=== PATIENT | female | born 1935 | race Caucasian/White ===

== ENCOUNTER 2024-10-25 14:01 | Inpatient (IN) ==
--- NOTE | 2024-10-25 14:18 | Emergency Department Note ---
HPI - SOB/Dyspnea General Chief Complaint: SOB -Shortness of Breath Stated Complaint: pneumonia Time Seen by Provider: 10/25/24 14:04 Source: EMS Mode of arrival: ambulance History of Present Illness HPI Narrative: 89 Y/O Female who presents to the ER at the request of Dr. Naranjo, from the onsite half-way, comes via EMS with SOB for the last 5 days requiring 2 Liters of oxygen to help bring 02 sats to 93%. MD elicited complaint: Reports shortness of breath Pertinent past history: Reports congestive heart failure Related Data Home Medications Medication Instructions Recorded Confirmed acetaminophen 325 mg capsule 650 mg PO Q4H PRN headache 06/23/24 10/25/24 aluminum-mag hydroxide-simethicone 30 ml PO Q6H PRN indigestion 06/23/24 10/25/24 400 mg-400 mg-40 mg/5 mL oral susp (Maalox Maximum Strength) apixaban 5 mg tablet (Eliquis) 5 mg PO Q12H 06/23/24 10/25/24 docusate sodium 100 mg capsule 200 mg PO BID 06/23/24 10/25/24 ferrous sulfate 325 mg (65 mg 325 mg PO BID 06/23/24 10/25/24 iron) tablet hydrochlorothiazide 12.5 mg capsule 12.5 mg PO DAILY 06/23/24 10/25/24 levothyroxine 25 mcg tablet 25 mcg PO QDAC 06/23/24 10/25/24 loratadine 10 mg tablet 10 mg PO DAILY 06/23/24 10/25/24 losartan 50 mg tablet 50 mg PO DAILY 06/23/24 10/25/24 megestrol 40 mg tablet 40 mg PO BID 06/23/24 10/25/24 metoprolol tartrate 25 mg tablet 12.5 mg PO Q12H 06/23/24 10/25/24 multivitamin (Daily Multi-Vitamin 1 tab PO DAILY 06/23/24 10/25/24 tablet) pantoprazole 40 mg tablet,delayed 40 mg PO Q12H 06/23/24 10/25/24 release simvastatin 20 mg tablet 20 mg PO BEDTIME 06/23/24 10/25/24 tramadol 50 mg tablet 50 mg PO Q8H PRN pain 06/23/24 10/25/24 Allergies Allergy/AdvReac Type Severity Reaction Status Date / Time Sulfa (Sulfonamide Allergy Verified 10/25/24 14:41 Antibiotics) Review of Systems Status of ROS 10 or more systems reviewed and unremark able except as noted in history and below Constitutional Denies: fever, chills or change in weight Eyes Denies: change in vision, blurry vision or blind spots Ears, nose, mouth, and throat Denies: neck pain Cardiovascular Denies: chest pain, palpitations, edema or swelling of feet/ankles Respiratory Reports: shortness of breath, cough and chest congestion; Denies: wheezing, stridor, pain on inspiration, change in phlegm color or coughing up blood Gastrointestinal Reports: nausea; Denies: abdominal pain, vomiting or change in bowel habits Genitourinary Denies: painful urination, urinary frequency or urinary urgency Musculoskeletal Denies: back pain Integumentary/Breast Denies: rash Neurological Denies: headache Psychiatric Denies: anxiety PFSH PFS Medical History (Updated 10/25/24 @ 15:19 by Dangelo Juarez RN) Right cataract Left cataract Normal colonoscopy Back pain Depression Breast cancer, right Anxiety Neuropathy Insomnia Irritable bowel syndrome (IBS) Fibromyalgia GERD (gastroesophageal reflux disease) Hypertension Hyperlipidemia Diabetes mellitus Vitamin D deficiency Hypothyroid Neoplasm of breast Dementia UTI (urinary tract infection) Acute kidney failure Encephalopathy Dysphagia Pneumonia Heart failure Pulmonary embolism NSTEMI (non-ST elevated myocardial infarction) Anemia Alzheimer dementia Surgical History (Updated 10/25/24 @ 15:19 by Dangelo Juarez RN) H/O right mastectomy Hx of esophagogastroduodenoscopy Hx of cardiac cath Hx of cholecystectomy H/O: hysterectomy Social History Smoking status: never smoker Within the past year, how often did you have a drink containing alcohol: never Score interpretation: A score less than 3 is consistent with normal alcohol consumption. What is your current living situation: I presently have a place to live Problems where you live: no known problems Highest level of school completed/degree received: high school Feel stressed/tense/nervous/anxious/difficulty sleeping: not at all Gender Identity: female Exam Exam: ill appearing, elderly, non toxic appearing obese female Constitutional: normal general appearance and alert Vital Signs - 24 hr 10/25/24 14:01 10/25/24 15:00 10/25/24 15:25 Temperature 98.1 F Pulse Rate 114 H 130 H Respiratory Rate 22 22 Blood Pressure 203/87 198/94 Pulse Oximetry 89 L 95 95 Oxygen Delivery Me thod Room Air Nasal Cannula Oxygen Flow Rate 2 10/25/24 15:30 Temperature Pulse Rate 134 H Respiratory Rate Blood Pressure 195/92 Pulse Oximetry 95 Oxygen Delivery Me thod Nasal Cannula Oxygen Flow Rate 2 HENMT: normocephalic Eyes: PERRL and EOMs intact bilaterally Respiratory: Lungs, coarse throughout with mild rales noted bilateral bases strong non productive cough noted Cardiovascular: normal heart rate noted and peripheral pulses 2+ throughout Gastrointestinal: abdomen normal to inspection, abdomen soft to palpation and normoactive bowel sounds Neurology: speech normal Psychiatry: oriented x3, cooperative and affect normal Skin: skin color normal Course Reevaluation(s) Reevaluation #1: Patient is stable. I spoke with the son at bedside. Patient's chest x-ray and CT chest is negative for PNA will treat for Bronchitis. WBC > 19,000. COVID/RSV and FLU all swabs are negative. One liter NS given 10 mg Hydralazine IVP given for HTN 4 mg Zofran given IVP Albuterol neb treatment patient is not wheezing, will hold on steroids at this time Azithromycin 500 mg piggyback ordered Time: 15:40 Reevaluation #2: [facility] office #[phone] called left message Called [facility]'s cell phone for admission - OK to admit Time: 15:55 Vital Signs Vital signs: Vital Signs Temperature 98.1 F 10/25/24 14:01 Pulse Rate 114 H 10/25/24 14:01 Respiratory Rate 22 10/25/24 14:01 Blood Pressure 203/87 10/25/24 14:01 Pulse Oximetry 89 L 10/25/24 14:01 Oxygen Delivery Method Room Air 10/25/24 14:01 Temperature 98.1 F 10/25/24 14:01 Pulse Rate 134 H 10/25/24 15:30 Respiratory Rate 22 10/25/24 15:00 Blood Pressure 195/92 10/25/24 15:30 Pulse Oximetry 95 10/25/24 15:30 Oxygen Delivery Method Nasal Cannula 10/25/24 15:30 Oxygen Flow Rate 2 10/25/24 15:30 MDM - SOB/Dyspnea Lab Data Attestation: I reviewed the patient's lab results. Labs: Lab Results 10/25/24 10/25/24 Range/Units 14:14 14:30 WBC 19.0 H (4.3-9.3) K/uL RBC 4.3 (4.00-5.50) M/uL Hgb 13.9 (12.5-15.8) gm/dL Hct 41.6 (35.9-46.7) % MCV 97.4 H (81.0-93.7) fl MCH 32.5 H (27.6-32.2) pg MCHC 33.4 (33.1-35.3) g/dl RDW 13.1 (11.4-14.2) % Plt Count 425 H (152-353) K/uL MPV 7.5 (6.9-10.8) fl Gran % 88.9 H (47.8-71.3) % Lymph % (Auto) 5.7 L (20.0-43.0) % [place] % (Auto) 4.6 (3.6-9.8) % Eos % (Auto) 0.6 (0.4-2.8) % Baso % (Auto) 0.2 (0.1-0.85) Lymph # (Auto) 1.1 (1.1-3.1) [place] # (Auto) 0.9 L (1.1-3.1) Eos # (Auto) 0.1 (0.0-0.2) Baso # (Auto) 0.0 (0.0-0.1) Absolute Gran (auto) 16.9 H (2.3-6.0) Sodium 137 (136-145) mmol/L Potassium 4.0 (3.6-5.2) mmol/L Chloride 101.0 (98-107) mmol/L Carbon Dioxide 27 (21-32) mmol/L Anion Gap 9.0 (4-14) mEq/L BUN 22 H (7-18) mg/dL Creatinine 1.4 H (0.6-1.3) mg/dL Estimated GFR 36.0 (>59.9) Glucose 158 H (70-110) mg/dL Calcium 9.4 (8.5-10.1) mg/dL B-Natriuretic Peptide 64.4 (0-100) pg/mL COVID-19 (IDA) Not detected (Not Detectd) Influenza Type A Ag Negative (Negative) Influenza Type B Ag Negative (Negative) Respiratory Virus Ag Negative (Negative) Imaging Data Imaging ordered: Chest x-ray Attestation: I have reviewed the pertinent imaging results. Radiologist's impression: EXAM: AP chest HISTORY: Cough SOB COMPARISON: 06/26/2024 FINDINGS: Heart size normal and unchanged with no definite infiltrate/pneumonia, CHF or pleural fluid. Persistent diaphragm elevation resulting in low lung volumes. IMPRESSION: No change, no acute findings. THIS IS AN ELECTRONICALLY VERIFIED FINAL REPORT 10/25/2024 2:37 PM - Electronically signed by Kel Shearer MD EXAMINATION: CT CHEST WO CON HISTORY: COUGH; SHORTNESS OF BREATH; CV COMPARISON: CT chest 11/20/2021 TECHNIQUE: Contiguous noncontrast axial CT images of the thorax. Images reviewed in the axial imaging plane with reformatted sagittal and coronal images.The above CT scan was done with automated exposure control and the mA and kV was adjusted to obtain quality images according to patient size. FINDINGS: The lungs are expanded. Moderate elevation of the right hemidiaphragm of the chest. Chronic coarse opacities in the pulmonary apices most consistent with parenchymal scar. Chronic opacity superior segment of the right lower lobe consistent with scar. No focal areas of pulmonary consolidation, or pleural fluid collections. Minimal to mild central bronchiectasis lower lung rogers. Central airways are patent. Details of the mediastinum/vascular structures are limited since intravenous contrast was not used. Heart size within normal range. Thoracic aorta tapers normally. Arterial vascular calcifications aorta and branch vessels. The main pulmonary outflow trunk is normal caliber. No pericardial effusion. Mild thoracic spondylosis. IMPRESSION: Moderate elevation of the right hemidiaphragm of the chest. Chronic coarse opacities in the pulmonary apices, superior segment right lower lobe most consistent with parenchymal scar. THIS IS AN ELECTRONICALLY VERIFIED FINAL REPORT 10/25/2024 3:21 PM - Electronically signed by Lorna Perez MD Discharge Plan Discharge Patient Disposition: Admitted As Inpatient Condition: Stable Clinical Impression: Bronchitis Time of Disposition: 15:35
[2024-10-25 14:37] LABS: Basophils%(Percent) Auto 0.2 (0.1-0.85); Eosinophils#(Absolute)Auto 0.1 (0.0-0.2); Eosinophils%(Percent) Auto 0.6 % (0.4-2.8); Granulocytes % - Auto 88.9 % (47.8-71.3); Granulocytes#(Absolute)- Auto 16.9 (2.3-6.0); Hematocrit 41.6 % (35.9-46.7); Mean Corpuscular Volume 97.4 fl (81.0-93.7); Monocytes #(Absolute)- Auto 0.9 (1.1-3.1); Monocytes %(Percent)- Auto 4.6 % (3.6-9.8); Platelet Count 425 K/uL (152-353)
[2024-10-25] MEDS: HYDRALAZINE HCL 20 MG/ML VIAL IVP ONE (14:53)
[2024-10-25] MEDS: ONDANSETRON HCL/PF 4 MG/2 ML VIAL IVP ONE (14:55)
[2024-10-25] MEDS ORDERED: ALBUTEROL SULFATE 2.5 MG/3 ML VIAL.NEB INH ONE (14:56)
[2024-10-25] MEDS: ALBUTEROL SULFATE 2.5 MG/3 ML VIAL.NEB INH ONE (15:25)
[2024-10-25] MEDS ORDERED: ACETAMINOPHEN 325 MG TABLET PO PRN (15:38)
[2024-10-25] MEDS ORDERED: MAGNESIUM, ALUMINUM HYDROXIDE 30 ML ORAL.SUSP PO PRN (15:54)
[2024-10-25] MEDS ORDERED: 0.9 % SODIUM CHLORIDE 1000 ML 1,000 ML IV ONE (16:08)
[2024-10-25] MEDS ORDERED: 0.9 % SODIUM CHLORIDE 250 ML IV ONE (16:08)
[2024-10-25] MEDS ORDERED: AZITHROMYCIN 500 MG VIAL ONE (16:09)
[2024-10-25] MEDS: AZITHROMYCIN 500 MG 500 MG in 0.9 % SODIUM CHLORIDE 250 ML IV ONE (16:15)
[2024-10-25] MEDS: 0.9 % SODIUM CHLORIDE 1000 ML 1,000 ML IV ONE (16:15)
[2024-10-25] MEDS: METOPROLOL TARTRATE 25 MG TABLET PO SCH (20:12)
[2024-10-25] MEDS: SIMVASTATIN 10 MG TABLET PO SCH (20:12)
[2024-10-25] MEDS: PANTOPRAZOLE SODIUM 40 MG TABLET.DR PO SCH (20:12)
[2024-10-25] MEDS: APIXABAN 2.5 MG TABLET PO SCH (20:12)
[2024-10-25] MEDS: MEGESTROL ACETATE 40 MG TABLET PO SCH (20:12)
[2024-10-25] MEDS: FERROUS SULFATE 325 MG TABLET PO SCH (20:12)
[2024-10-25] MEDS: DOCUSATE SODIUM 100 MG CAPSULE PO SCH (20:12)
[2024-10-25] MEDS: BENZONATATE 100 MG CAPSULE PO PRN (20:22)
[2024-10-25] MEDS: IPRATROPIUM/ALBUTEROL SULFATE 3 ML AMPUL.NEB INH SCH (20:47)
[2024-10-25] MEDS: ACETYLCYSTEINE 200 MG/ML INH ONE (21:00)
[2024-10-25] MEDS: BUDESONIDE 0.5 MG/2 ML AMPUL.NEB INH ONE (21:00)
[2024-10-25] MEDS: CEFTRIAXONE SODIUM 1 GM in 0.9 % SODIUM CHLORIDE MB+ 50 ML IV SCH (21:38)
[2024-10-25] MEDS: BUMETANIDE 1 MG/4 ML VIAL IVP ONE (21:38)
[2024-10-25] MEDS: LORazepam 2 MG/ML VIAL IVP PRN (21:38)
[2024-10-25] MEDS: METHYLPREDNISOLONE SOD SUCC/PF 125 MG/2 ML VIAL IVP ONE (21:38)
[2024-10-26 05:14] LABS: Basophils #(Absolute) Auto 0.1 (0.0-0.1); Basophils%(Percent) Auto 0.4 (0.1-0.85); Granulocytes % - Auto 96.8 % (47.8-71.3); Granulocytes#(Absolute)- Auto 21.9 (2.3-6.0); Hematocrit 39.5 % (35.9-46.7); Mean Corpuscular Volume 96.7 fl (81.0-93.7); Monocytes #(Absolute)- Auto 0.4 (1.1-3.1); Monocytes %(Percent)- Auto 1.7 % (3.6-9.8); Platelet Count 339 K/uL (152-353)
[2024-10-26 05:16] LABS: Potassium 4.3 mmol/L (3.6-5.2); White Blood Count 22.6 K/uL (4.3-9.3)
[2024-10-26] MEDS: LEVOTHYROXINE SODIUM 50 MCG TABLET PO SCH (08:25)
[2024-10-26 08:40] LABS: PCO2 ABG 42 mmHg (35-45); PO2 ABG 78 mmHg (60-100); pH ABG 7.33 (7.35-7.45)
[2024-10-26 08:41] LABS: Base Excess ABG -3.7 mmo1/L (-2-2); Oxygen Saturation ABG 94 % (92-100)
[2024-10-26] MEDS ORDERED: ENOXAPARIN SODIUM 40 MG/0.4 ML SYRINGE SUBQ SCH (09:00)
[2024-10-26] MEDS: BUDESONIDE 0.5 MG/2 ML AMPUL.NEB INH ONE (09:19)
[2024-10-26] MEDS: ALBUMIN HUMAN 25% 100 ML IV SCH (09:23)
[2024-10-26] MEDS: 0.9 % SODIUM CHLORIDE 1000 ML 1,000 ML IV SCH (09:23)
[2024-10-26] MEDS: METHYLPREDNISOLONE SOD SUCC/PF 40 MG/ML VIAL INJ SCH (09:24)
[2024-10-26] MEDS: AZITHROMYCIN IV SCH (09:24)
[2024-10-26] MEDS: LOSARTAN POTASSIUM 50 MG TABLET PO SCH (09:24)
[2024-10-26] MEDS: SODIUM CHLORIDE 0.9% IV SCH (09:24)
[2024-10-26] MEDS: LORATADINE 10 MG TABLET PO SCH (09:24)
[2024-10-26] MEDS: MULTIVITAMIN TABLET PO SCH (09:25)
[2024-10-26] MEDS: VANCOMYCIN HCL 1 MG in 0.9 % SODIUM CHLORIDE 250 ML IV SCH (09:58)
[2024-10-26] MEDS: hydroCHLOROthiazide 25 MG TABLET PO SCH (09:58)
[2024-10-26] MEDS: VANCOMYCIN/WATER 750 MG 750 MG/150 ML PIGGYBACK IV SCH (10:34)
[2024-10-26 10:36] LABS: Specific Gravity Urine 1.025 (1.001-1.035); Urine Appearance CLEAR (CLEAR); Urine Blood NEGATIVE (NEG - TRACE); Urine Color YELLOW (STRAW/YELL.); Urine Urobilinogen Normal (NORMAL)
[2024-10-26] MEDS: HYDROCODONE/CHLORPHEN P-STIREX 5 ML SUS.ER.12H PO PRN (11:19)
[2024-10-26] MEDS: VANCOMYCIN HCL 500 MG 500 MG in 0.9 % SODIUM CHLORIDE MB+ 100 ML IV SCH (11:20)
--- NOTE | 2024-10-26 14:15 | History & Physical Report ---
H&P: HPI History of Present Illness Chief complaint: Bronchitits Narrative: 89 Y/O Female who presented to the ER at the request of Dr. Naranjo, from the onsite [facility], comes via EMS with SOB for the last 5 days requiring 2 Liters of oxygen to help bring 02 sats to 93%. Admitted patient to med/surg for treatment. Day one of hospital stay, patient lab work reveals she is septic with end organ, clinical pneumonia, acute renal injury, hypoxia, dehydration, and hypoabluminemia. Electrolyte resuscitation has been initiated. EKG was performed and reflects Sinus Tachycardia with a Rate of 120 and IL of 134. WBC is elevated at 22.6 from 19.0 yesterday. Patient's D-Dimer was elevated at 1460 this and Lactic Acid of 4.3. Chest X-Ray finding of "Persistent diaphragm elevation resulting in low lung volumes." Chest CT Impression: " Moderate elevation of the right hemidiaphragm of the chest. Chronic coarse opacities in the pulmonary apices, superior segment right lower lobe most consistent with parenchymal scar." Review of Systems Status of ROS 10 or more systems reviewed and unremark able except as noted in history and below Constitutional Denies: fever, chills or change in weight Eyes Denies: change in vision, blurry vision or blind spots Ears, nose, mouth, and throat Denies: neck pain Cardiovascular Reports: shortness of breath with exertion; Denies: chest pain, palpitations, edema or swelling of feet/ankles Respiratory Reports: shortness of breath, cough and chest congestion; Denies: wheezing, stridor, pain on inspiration, change in phlegm color or coughing up blood Gastrointestinal Reports: nausea; Denies: abdominal pain, vomiting or change in bowel habits Genitourinary Denies: painful urination, urinary frequency or urinary urgency Musculoskeletal Denies: back pain or neck pain Integumentary/Breast Denies: rash Neurological Denies: headache Psychiatric Denies: anxiety Allergic/Immunologic Denies: wheezing PFSH PFS Medical History Right cataract Left cataract Normal colonoscopy Back pain Depression Breast cancer, right Anxiety Neuropathy Insomnia Irritable bowel syndrome (IBS) Fibromyalgia GERD (gastroesophageal reflux disease) Hypertension Hyperlipidemia Diabetes mellitus Vitamin D deficiency Hypothyroid Neoplasm of breast Dementia UTI (urinary tract infection) Acute kidney failure Encephalopathy Dysphagia Pneumonia Heart failure Pulmonary embolism NSTEMI (non-ST elevated myocardial infarction) Anemia Alzheimer dementia Surgical History H/O right mastectomy Hx of esophagogastroduodenoscopy Hx of cardiac cath Hx of cholecystectomy H/O: hysterectomy Social History Smoking status: never smoker Within the past year, how often did you have a drink containing alcohol: never Score interpretation: A score less than 3 is consistent with normal alcohol consumption. What is your current living situation: I presently have a place to live Problems where you live: no known problems Highest level of school completed/degree received: high school Feel stressed/tense/nervous/anxious/difficulty sleeping: not at all Gender Identity: female Meds Home Medications and Allergies Home Medications Medication Instructions Recorded Confirmed Type acetaminophen 325 mg capsule 650 mg PO Q4H PRN headache 06/23/24 10/25/24 History aluminum-mag hydroxide-simethicone 30 ml PO Q6H PRN indigestion 06/23/24 10/25/24 History 400 mg-400 mg-40 mg/5 mL oral susp (Maalox Maximum Strength) apixaban 5 mg tablet (Eliquis) 5 mg PO Q12H 06/23/24 10/25/24 History docusate sodium 100 mg capsule 200 mg PO BID 06/23/24 10/25/24 History ferrous sulfate 325 mg (65 mg 325 mg PO BID 06/23/24 10/25/24 History iron) tablet hydrochlorothiazide 12.5 mg capsule 12.5 mg PO DAILY 06/23/24 10/25/24 History loratadine 10 mg tablet 10 mg PO DAILY 06/23/24 10/25/24 History losartan 50 mg tablet 50 mg PO DAILY 06/23/24 10/25/24 History megestrol 40 mg tablet 40 mg PO BID 06/23/24 10/25/24 History metoprolol tartrate 25 mg tablet 12.5 mg PO Q12H 06/23/24 10/25/24 History multivitamin (Daily Multi-Vitamin 1 tab PO DAILY 06/23/24 10/25/24 History tablet) pantoprazole 40 mg tablet,delayed 40 mg PO Q12H 06/23/24 10/25/24 History release simvastatin 20 mg tablet 20 mg PO BEDTIME 06/23/24 10/25/24 History tramadol 50 mg tablet 50 mg PO Q8H PRN pain 06/23/24 10/25/24 History levothyroxine 50 mcg tablet 50 mcg PO QDAC 10/26/24 10/26/24 History Allergies Allergy/AdvReac Type Severity Reaction Status Date / Time Sulfa (Sulfonamide Allergy Verified 10/25/24 14:41 Antibiotics) Exam Exam: Patient appeared disheveled and feeling unwell upon exam. Constitutional: abnormal general appearance (disheveled), (chronically ill) and (lethargic), distress noted (mild), abnormal body habitus (overweight) and alert Vital Signs - 24 hr 10/25/24 14:01 10/25/24 15:00 10/25/24 15:23 Temperature 98.1 F Pulse Rate 114 H 130 H Pulse Rate [Bilate ral] Respiratory Rate 22 22 Blood Pressure 203/87 198/94 155/69 Blood Pressure [Ri t Radial Artery] Pulse Oximetry 89 L 95 Oxygen Delivery Me thod Room Air Nasal Cannula Oxygen Flow Rate 2 Fraction of Inspir ed Oxygen 10/25/24 15:25 10/25/24 15:30 10/25/24 15:45 Temperature Pulse Rate 134 H Pulse Rate [Bilate ral] Respiratory Rate Blood Pressure 195/92 195/92 Blood Pressure [Ri ght Radial Artery] Pulse Oximetry 95 95 Oxygen Delivery Me thod Nasal Cannula Oxygen Flow Rate 2 Fraction of Inspir ed Oxygen 10/25/24 16:00 10/25/24 16:15 10/25/24 16:34 Temperature Pulse Rate Pulse Rate [Bilate ral] Respiratory Rate Blood Pressure 204/92 155/69 159/75 Blood Pressure [Ri t Radial Artery] Pulse Oximetry Oxygen Delivery Me thod Oxygen Flow Rate Fraction of Inspir ed Oxygen 10/25/24 16:58 10/25/24 17:14 10/25/24 17:26 Temperature Pulse Rate Pulse Rate [Bilate ral] Respiratory Rate 24 24 Blood Pressure 159/75 Blood Pressure [Ri t Radial Artery] Pulse Oximetry 94 L 94 L Oxygen Delivery Me thod Nasal Cannula Nasal Cannula Oxygen Flow Rate 2 2 Fraction of Inspir ed Oxygen 10/25/24 19:27 10/25/24 20:49 10/25/24 20:49 Temperature 98.5 F Pulse Rate Pulse Rate [Bilate ral] 130 H Respiratory Rate 19 Blood Pressure Blood Pressure [Ri ght Radial Artery] 173/74 Pulse Oximetry 94 L 93 L 93 L Oxygen Delivery Me thod Nasal Cannula Nasal Cannula Oxygen Flow Rate 3 Fraction of Inspir ed Oxygen 10/25/24 21:38 10/25/24 23:57 10/26/24 00:21 Temperature 98.4 F Pulse Rate Pulse Rate [Bilate ral] 121 H Respiratory Rate 32 H Blood Pressure 168/70 160/80 Blood Pressure [Ri ght Radial Artery] 166/80 Pulse Oximetry 97 Oxygen Delivery Me thod Nasal Cannula Oxygen Flow Rate Fraction of Inspir ed Oxygen 10/26/24 01:47 10/26/24 03:48 10/26/24 05:24 Temperature 98.5 F Pulse Rate Pulse Rate [Bilate ral] 117 H Respiratory Rate 24 22 Blood Pressure Blood Pressure [Ri ght Radial Artery] 168/82 Pulse Oximetry 86 L 97 Oxygen Delivery Me thod Venturi Mask Venturi Mask Oxygen Flow Rate Fraction of Inspir ed Oxygen 10/26/24 07:24 10/26/24 07:24 10/26/24 08:00 Temperature 98.9 F Pulse Rate Pulse Rate [Bilate ral] 117 H Respiratory Rate 20 Blood Pressure Blood Pressure [Ri ght Radial Artery] 140/62 Pulse Oximetry 94 L 94 L 94 L Oxygen Delivery Me thod Venturi Mask Room Air Oxygen Flow Rate Fraction of Inspir ed Oxygen 35 10/26/24 09:24 10/26/24 09:25 10/26/24 12:00 Temperature 98.9 F Pulse Rate 117 H Pulse Rate [Bilate ral] 108 H Respiratory Rate 20 Blood Pressure 140/62 140/62 Blood Pressure [Ri ght Radial Artery] 145/68 Pulse Oximetry 98 Oxygen Delivery Me thod Nasal Cannula Oxygen Flow Rate 2 Fraction of Inspir ed Oxygen 10/26/24 13:02 Temperature Pulse Rate Pulse Rate [Bilate ral] Respiratory Rate Blood Pressure Blood Pressure [Ri ght Radial Artery] Pulse Oximetry 99 Oxygen Delivery Me thod Oxygen Flow Rate Fraction of Inspir ed Oxygen HENMT: normocephalic, external ears normal and external nose normal Eyes: PERRL, EOMs intact bilaterally, conjunctivae normal, alignment normal and periorbital findings normal Neck/C-Spine: trachea midline Lymph: no lymphadenopathy noted and no lymphedema noted Chest: inspection of chest normal and palpation of chest normal Respiratory: breath sounds equal bilaterally, normal respiratory effort, auscultation abnormal (bronchial breath sounds) and rales noted (base) Lungs, coarse throughout with mild rales noted bilateral bases strong non productive cough noted Cardiovascular: normal heart rate noted and peripheral pulses 2+ throughout Gastrointestinal: abdomen normal to inspection, abdomen soft to palpation and normoactive bowel sounds Genitourinary: bladder normal to palpation Back/Pelvis: spine normal to inspection Extremities: normal to inspection and no deformity Neurology: no movement abnormality noted, gait abnormality noted (unable to access) and speech normal Psychiatry: oriented x3, cooperative and affect normal Skin: skin color normal Assessment and Plan Assessment and Plan (1) Sepsis: Qualifiers: Acute renal failure type: unspecified Sepsis acute organ dysfunction status: with acute organ dysfunction Sepsis type: sepsis due to unspecified organism Severe sepsis acute organ dysfunction type: acute renal failure Severe sepsis shock status: without septic shock Qualified Code(s): A41.9 - Sepsis, unspecified organism; R65.20 - Severe sepsis without septic shock; N17.9 - Acute kidney failure, unspecified Code(s): A41.9 - Sepsis, unspecified organism (2) Pneumonia: Qualifiers: Laterality: bilateral Lung location: lower lobe of lung Pneumonia type: due to unspecified organism Qualified Code(s): J18.9 - Pneumonia, un specified organism Code(s): J18.9 - Pneumonia, unspecified organism (3) Acute renal injury due to sepsis: Code(s): A41.9 - Sepsis, unspecified organism; R65.20 - Severe sepsis without septic shock; N17.9 - Acute kidney failure, unspecified (4) Dehydration: Code(s): E86.0 - Dehydration (5) Hypoxia: Code(s): R09.02 - Hypoxemia (6) Hypoalbuminemia: Code(s): E88.09 - Other disorders of plasma-protein metabolism, not elsewhere classified (7) Heart failure: Qualifiers: Heart failure chronicity: chronic Heart failure type: unspecified Qualified Code(s): I50.9 - Heart failure, unspecified Code(s): I50.9 - Heart failure, unspecified (8) Hypertension: Qualifiers: Hypertension type: primary hypertension Qualified Code(s): I10 - Essential (primary) hypertension Code(s): I10 - Essential (primary) hypertension (9) Diabetes mellitus: Qualifiers: Diabetes mellitus complication status: with other specified complication Diabetes mellitus mcfp insulin use: without mcfp use Diabetes mellitus type: type 2 Qualified Code(s): E11.69 - Type 2 diabetes mellitus with other specified complication Code(s): E11.9 - Type 2 diabetes mellitus without complications (10) Hypothyroid: Qualifiers: Hypothyroidism type: unspecified Qualified Code(s): E03.9 - Hypothyroidism, unspecified Code(s): E03.9 - Hypothyroidism, unspecified (11) Alzheimer dementia: Qualifiers: Alzheimer's disease onset: unspecified onset Dementia behavioral or psychological symptom: without behavioral, psychotic, or mood disturbance or anxiety Dementia severity: moderate Qualified Code(s): G30.9 - Alzheimer's disease, unspecified; F02.B0 - Dementia in other diseases classified elsewhere, moderate, without behavioral disturbance, psychotic disturbance, mood disturbance, and anxiety Code(s): G30.9 - Alzheimer's disease, unspecified; F02.80 - Dementia in other diseases classified elsewhere, unspecified severity, without behavioral disturbance, psychotic disturbance, mood disturbance, and anxiety Plan Albumin 100 mls @ 60 mls/hr IV ONCE Sodium Chloride 1,000 mls @ 125 mls/hr IV CONT Apixaban 5 mg PO Q12H Docusate Sodium 200 mg PO BID Losartan Potassium 50 mg PO DAILY Levothyroxine Sodium 25 mcg PO QDAC Multivitamins (1) each PO DAILY Ferrous Sulfate 325 mg PO BID Loratadine 10 mg PO DAILY Megastrol Acetate 40 mg PO BID Pantoprazole Sodium 40 mg PO BID Simvastatin 20 mg PO BEDTIME Albuterol Sulfate 3 ml INH Q6H Methylprednisolone Sodium Succinate 40 mg INJ Q12H Azithromycin 250 mg in Sodium Chloride 250 mls @ 250 mls/hr IV DAILY Ceftriaxone Sodium 1 gm in Sodium Chloride 50 mls @ 100 mls/hr IV Q24H Vancomycin Hcl 500 mg in Sodium Chloride 100 mls @ 200 mls/hr IV Q18H Metoprolol Tartrate 25 mg PO Q12H Acetaminophen 650 mg PO Q4H PRN Magnesium Hydroxide 30 ml PO Q6H PRN Tramadol Hcl 50 mg PO Q8H PRN Benzonatate 100 mg PO Q6H PRN Insulin Regular per sliding scale SUBQ PRN Chlorphenir/Hydrocodone Polistirex 5 ml PO Q12H PRN Continue to monitor closely. Results Labs Labs: CBC WBC 22.6 K/uL (4.3-9.3) H* 10/26/24 04:35 RBC 4.1 M/uL (4.00-5.50) 10/26/24 04:35 Hgb 13.5 gm/dL (12.5-15.8) 10/26/24 04:35 Hct 39.5 % (35.9-46.7) 10/26/24 04:35 MCV 96.7 fl (81.0-93.7) H 10/26/24 04:35 MCH 33.2 pg (27.6-32.2) H 10/26/24 04:35 MCHC 34.3 g/dl (33.1-35.3) 10/26/24 04:35 RDW 13.2 % (11.4-14.2) 10/26/24 04:35 Plt Count 339 K/uL (152-353) 10/26/24 04:35 MPV 8.8 fl (6.9-10.8) 10/26/24 04:35 Gran % 96.8 % (47.8-71.3) H 10/26/24 04:35 Lymph % (Auto) 1.1 % (20.0-43.0) L 10/26/24 04:35 [place] % (Auto) 1.7 % (3.6-9.8) L 10/26/24 04:35 Eos % (Auto) 0.0 % (0.4-2.8) L 10/26/24 04:35 Baso % (Auto) 0.4 (0.1-0.85) 10/26/24 04:35 Lymph # (Auto) 0.3 (1.1-3.1) L 10/26/24 04:35 [place] # (Auto) 0.4 (1.1-3.1) L 10/26/24 04:35 Eos # (Auto) 0.0 (0.0-0.2) 10/26/24 04:35 Baso # (Auto) 0.1 (0.0-0.1) 10/26/24 04:35 Absolute Gran (auto) 21.9 (2.3-6.0) H 10/26/24 04:35 BMP Sodium 138 mmol/L (136-145) 10/26/24 04:35 Potassium 4.3 mmol/L (3.6-5.2) 10/26/24 04:35 Chloride 100.0 mmol/L (98-107) 10/26/24 04:35 Carbon Dioxide 28 mmol/L (21-32) 10/26/24 04:35 Anion Gap 10.0 mEq/L (4-14) 10/26/24 04:35 BUN 21 mg/dL (7-18) H 10/26/24 04:35 Creatinine 1.7 mg/dL (0.6-1.3) H 10/26/24 04:35 Estimated GFR 28.5 (>59.9) 10/26/24 04:35 Glucose 210 mg/dL (70-110) H 10/26/24 04:35 Calcium 9.2 mg/dL (8.5-10.1) 10/26/24 04:35 Cardiac Enzymes Troponin I High Sens 52.80 ng/L (4.0-60.4) 10/26/24 09:45 Urine Urine Color Yellow (STRAW/YELL.) 10/26/24 10:25 Urine Appearance Clear (CLEAR) 10/26/24 10:25 Ur Specific [place] 1.025 (1.001-1.035) 10/26/24 10:25 Urine Protein Negative (NEGATIVE) 10/26/24 10:25 Urine Glucose (UA) Normal (NORMAL) 10/26/24 10:25 Urine Ketones Negative (NEGATIVE) 10/26/24 10:25 Urine Occult Blood Negative (NEG - TRACE) 10/26/24 10:25 Urine Nitrite Negative (NEGATIVE) 10/26/24 10:25 Urine Bilirubin Negative (NEGATIVE) 10/26/24 10:25 Urine Urobilinogen Normal (NORMAL) 10/26/24 10:25 Ur Leukocyte Esterase Negative (NEGATIVE) 10/26/24 10:25 ABG ABG results: 10/26/24 08:25 ABG pH 7.33 L ABG pCO2 42 ABG pO2 176 ABG HCO3 22.1 ABG Total CO2 23.4 ABG O2 Saturation 94 ABG Base Excess -3.7 L Imaging Imaging ordered: Chest x-ray and CT scan - chest Radiologist's impression: AP chest Date of Service: 10/25/24 HISTORY: Cough SOB COMPARISON: 06/26/2024 FINDINGS: Heart size normal and unchanged with no definite infiltrate/pneumonia, CHF or pleural fluid. Persistent diaphragm elevation resulting in low lung volumes. IMPRESSION: No change, no acute findings. CT CHEST WO CON Date of Service: 10/25/24 HISTORY: COUGH; SHORTNESS OF BREATH; CV COMPARISON: CT chest 11/20/2021 TECHNIQUE: Contiguous noncontrast axial CT images of the thorax. Images reviewed in the axial imaging plane with reformatted sagittal and coronal images.The above CT scan was done with automated exposure control and the mA and kV was adjusted to obtain quality images according to patient size. FINDINGS: The lungs are expanded. Moderate elevation of the right hemidiaphragm of the chest. Chronic coarse opacities in the pulmonary apices most consistent with parenchymal scar. Chronic opacity superior segment of the right lower lobe consistent with scar. No focal areas of pulmonary consolidation, or pleural fluid collections. Minimal to mild central bronchiectasis lower lung rogers. Central airways are patent. Details of the mediastinum/vascular structures are limited since intravenous contrast was not used. Heart size within normal range. Thoracic aorta tapers normally. Arterial vascular calcifications aorta and branch vessels. The main pulmonary outflow trunk is normal caliber. No pericardial effusion. Mild thoracic spondylosis. IMPRESSION: Moderate elevation of the right hemidiaphragm of the chest. Chronic coarse opacities in the pulmonary apices, superior segment right lower lobe most consistent with parenchymal scar.
[2024-10-26 14:23] LABS: Bilirubin Direct 0.1 mg/dL (0.0-0.30)
[2024-10-26] MEDS: METOPROLOL TARTRATE 25 MG TABLET PO SCH (20:06)
[2024-10-26] MEDS: TRAMADOL HCL 50 MG TABLET PO PRN (21:30)
[2024-10-27 06:57] LABS: Basophils%(Percent) Auto 0.2 (0.1-0.85); Granulocytes % - Auto 94.1 % (47.8-71.3); Granulocytes#(Absolute)- Auto 19.1 (2.3-6.0); Hematocrit 29.5 % (35.9-46.7); Mean Corpuscular Volume 97.6 fl (81.0-93.7); Monocytes #(Absolute)- Auto 0.7 (1.1-3.1); Monocytes %(Percent)- Auto 3.6 % (3.6-9.8); Platelet Count 320 K/uL (152-353)
[2024-10-27 07:00] LABS: White Blood Count 20.3 K/uL (4.3-9.3)
[2024-10-27 07:04] LABS: Potassium 4.5 mmol/L (3.6-5.2)
[2024-10-27] MEDS: LEVOTHYROXINE SODIUM 50 MCG TABLET PO SCH (08:14)
[2024-10-27] MEDS: MAGNESIUM OXIDE 400 MG TABLET PO ONE (10:14)
[2024-10-27] MEDS: IPRATROPIUM/ALBUTEROL SULFATE 3 ML AMPUL.NEB INH SCH (13:27)
--- NOTE | 2024-10-27 16:31 | Progress Note ---
Progress Note: Subjective Subjective Interval history: Day two of hospital stay, morning lab work reflects WBC level down from 22.6 to 20.3 and Lactic Acid is down to normal limits of 0.6 from 2.3. Patient O2 saturation decreased to low 80's post breathing treatment, Respiratory Therapy at bedside and applied venti mask at 40%; O2 saturation returned to normal limits. Patient is normally on O2 PRN at home and does not require it continuous. Patient was weened down to 1L O2 and switched back to NC by day shif t nurse, saturations were stable at 96-97%. Nurse attempted to ween patient off O2, after 15 minutes saturation dropped to 89% on room air; O2 was reapplied at 2L via NC resulting in patient saturation returning to 97%. Exam Exam: Patient in velarde's position upon exam. Constitutional: abnormal general appearance (disheveled), (chronically ill) and (lethargic), distress noted (mild), abnormal body habitus (overweight), limitations noted (altered mental status) and (physical limitations) and alert Vital Signs - 24 hr 10/26/24 16:00 10/26/24 16:56 10/26/24 19:18 Temperature 98.3 F 98.4 F Pulse Rate Pulse Rate [Bilate ral] 103 H 105 H Respiratory Rate 21 21 23 Blood Pressure Blood Pressure [Ri t Radial Artery] 146/67 136/63 Pulse Oximetry 98 98 98 Oxygen Delivery Me thod Nasal Cannula Nasal Cannula Nasal Cannula Oxygen Flow Rate 2 2 Fraction of Inspir ed Oxygen 10/26/24 19:26 10/26/24 19:26 10/26/24 20:06 Temperature Pulse Rate 105 H Pulse Rate [Bilate ral] Respiratory Rate Blood Pressure 136/63 Blood Pressure [Ri t Radial Artery] Pulse Oximetry 99 99 Oxygen Delivery Me thod Nasal Cannula Oxygen Flow Rate 1 Fraction of Inspir ed Oxygen 24 10/27/24 00:00 10/27/24 01:43 10/27/24 03:39 Temperature 97.8 F 97.7 F Pulse Rate Pulse Rate [Bilate ral] 97 H 95 H Respiratory Rate 24 21 Blood Pressure Blood Pressure [Ri [facility] Radial Artery] 114/65 119/65 Pulse Oximetry 98 98 95 Oxygen Delivery Me thod Nasal Cannula Nasal Cannula Oxygen Flow Rate Fraction of Inspir ed Oxygen 10/27/24 05:00 10/27/24 07:44 01/24/25 08:25 Temperature 97.8 F Pulse Rate Pulse Rate [Bilate ral] 102 H Respiratory Rate 20 19 Blood Pressure Blood Pressure [Ri [facility] Radial Artery] 142/66 Pulse Oximetry 92 L 96 99 Oxygen Delivery Me thod Nasal Cannula Nasal Cannula Oxygen Flow Rate 1 1 Fraction of Inspir ed Oxygen 10/27/24 11:43 10/27/24 13:27 Temperature 98.5 F Pulse Rate Pulse Rate [Bilate ral] 100 H Respiratory Rate 19 Blood Pressure Blood Pressure [Ri [facility] Radial Artery] 116/59 Pulse Oximetry 97 99 Oxygen Delivery Me thod Nasal Cannula Oxygen Flow Rate 1 Fraction of Inspir ed Oxygen HENMT: normocephalic, head/scalp atraumatic, external ears normal and external nose normal Eyes: PERRL, EOMs intact bilaterally, conjunctivae normal, alignment normal and periorbital findings normal Neck/C-Spine: trachea midline, cervical spine nontender, abnormal cervical ROM noted, supple, no meningeal signs and no carotid bruits Lymph: no lymphadenopathy noted and no lymphedema noted Chest: inspection of chest normal and palpation of chest normal Respiratory: breath sounds equal bilaterally, normal respiratory effort (improved), auscultation abnormal (bronchial breath sounds), wheezing noted (improved) and rales noted (base) Lungs, coarse throughout with mild rales noted bilateral bases strong non productive cough noted Cardiovascular: normal heart rate noted, regular rhythm noted, no gallop, no rub, no murmur, no JVD, no clicks, peripheral pulses 2+ throughout and no bruits noted Gastrointestinal: abdomen normal to inspection, abdomen soft to palpation, nontender to palpation, normoactive bowel sounds and no ascites Genitourinary: bladder normal to palpation and external appearance normal Back/Pelvis: spine normal to inspection, no thoracic spine tenderness, no lumbar spine tenderness, thoracic spine ROM abnormal and lumbar spine ROM abnormal Extremities: normal to inspection, abnormal ROM noted and no deformity Neurology: business process expert II-XII intact, no movement abnormality noted, sensory deficit noted, gait abnormality noted (unable to access), speech normal, coordination abnormality noted and GCS normal Psychiatry: mental status abnormal (somnolent), oriented x3, thought process abnormality noted, cooperative and affect normal Skin: skin color normal, ecchymosis noted, no wounds, no lacerations, skin turgor normal, no jaundice, no petechiae, no mottling and nails abnormality noted Progress Note: Objective Labs Labs: CBC WBC 20.3 K/uL (4.3-9.3) H* 10/27/24 06:35 RBC 3.0 M/uL (4.00-5.50) L 10/27/24 06:35 Hgb 10.0 gm/dL (12.5-15.8) L 10/27/24 06:35 Hct 29.5 % (35.9-46.7) L 10/27/24 06:35 MCV 97.6 fl (81.0-93.7) H 10/27/24 06:35 MCH 33.1 pg (27.6-32.2) H 10/27/24 06:35 MCHC 33.9 g/dl (33.1-35.3) 10/27/24 06:35 RDW 13.3 % (11.4-14.2) 10/27/24 06:35 Plt Count 320 K/uL (152-353) 10/27/24 06:35 MPV 8.4 fl (6.9-10.8) 10/27/24 06:35 Gran % 94.1 % (47.8-71.3) H 10/27/24 06:35 Lymph % (Auto) 2.1 % (20.0-43.0) L 10/27/24 06:35 [place] % (Auto) 3.6 % (3.6-9.8) 10/27/24 06:35 Eos % (Auto) 0.0 % (0.4-2.8) L 10/27/24 06:35 Baso % (Auto) 0.2 (0.1-0.85) 10/27/24 06:35 Lymph # (Auto) 0.4 (1.1-3.1) L 10/27/24 06:35 [place] # (Auto) 0.7 (1.1-3.1) L 10/27/24 06:35 Eos # (Auto) 0.0 (0.0-0.2) 10/27/24 06:35 Baso # (Auto) 0.0 (0.0-0.1) 10/27/24 06:35 Absolute Gran (auto) 19.1 (2.3-6.0) H 10/27/24 06:35 BMP Sodium 140 mmol/L (136-145) 10/27/24 06:35 Potassium 4.5 mmol/L (3.6-5.2) 10/27/24 06:35 Chloride 107.0 mmol/L (98-107) 10/27/24 06:35 Carbon Dioxide 26 mmol/L (21-32) 10/27/24 06:35 Anion Gap 7.0 mEq/L (4-14) 10/27/24 06:35 BUN 31 mg/dL (7-18) H 10/27/24 06:35 Creatinine 1.7 mg/dL (0.6-1.3) H 10/27/24 06:35 Estimated GFR 28.5 (>59.9) 10/27/24 06:35 Glucose 152 mg/dL (70-110) H 10/27/24 06:35 Calcium 8.1 mg/dL (8.5-10.1) L 10/27/24 06:35 Phosphorus 3.4 mg/dL (2.5-4.9) 10/27/24 06:35 Magnesium 1.5 mg/dL (1.8-2.4) L 10/27/24 06:35 Total Bilirubin 0.30 mg/dL (0.0-1.0) 10/26/24 09:50 Direct Bilirubin 0.10 mg/dL (0.0-0.30) 10/26/24 09:50 Indirect Bilirubin 0.20 mg/dL 10/26/24 09:50 AST 20 U/L (15-37) 10/26/24 09:50 ALT 16 U/L (30-65) L 10/26/24 09:50 Alkaline Phosphatase 58 U/L (50-136) 10/26/24 09:50 Total Protein 7.0 g/dL (6.4-8.2) 10/26/24 09:50 Albumin 2.6 g/dL (3.4-5.0) L 10/26/24 09:50 Cardiac Enzymes Troponin I High Sens 37.50 ng/L (4.0-60.4) 10/26/24 21:00 Liver Function Total Bilirubin 0.30 mg/dL (0.0-1.0) 10/26/24 09:50 Direct Bilirubin 0.10 mg/dL (0.0-0.30) 10/26/24 09:50 Indirect Bilirubin 0.20 mg/dL 10/26/24 09:50 AST 20 U/L (15-37) 10/26/24 09:50 ALT 16 U/L (30-65) L 10/26/24 09:50 Alkaline Phosphatase 58 U/L (50-136) 10/26/24 09:50 Total Protein 7.0 g/dL (6.4-8.2) 10/26/24 09:50 Albumin 2.6 g/dL (3.4-5.0) L 10/26/24 09:50 Urine Urine Color Yellow (STRAW/YELL.) 10/26/24 10:25 Urine Appearance Clear (CLEAR) 10/26/24 10:25 Ur Specific [place] 1.025 (1.001-1.035) 10/26/24 10:25 Urine Protein Negative (NEGATIVE) 10/26/24 10:25 Urine Glucose (UA) Normal (NORMAL) 10/26/24 10:25 Urine Ketones Negative (NEGATIVE) 10/26/24 10:25 Urine Occult Blood Negative (NEG - TRACE) 10/26/24 10:25 Urine Nitrite Negative (NEGATIVE) 10/26/24 10:25 Urine Bilirubin Negative (NEGATIVE) 10/26/24 10:25 Urine Urobilinogen Normal (NORMAL) 10/26/24 10:25 Ur Leukocyte Esterase Negative (NEGATIVE) 10/26/24 10:25 Progress Note: A&P Assessment and Plan (1) Sepsis: Assessment and Plan: resolved continue to monitor Qualifiers: Acute renal failure type: unspecified Sepsis acute organ dysfunction status: with acute organ dysfunction Sepsis type: sepsis due to unspecified organism Severe sepsis acute organ dysfunction type: acute renal failure Severe sepsis shock status: without septic shock Qualified Code(s): A41.9 - Sepsis, unspecified organism; R65.20 - Severe sepsis without septic shock; N17.9 - Acute kidney failure, unspecified (2) Pneumonia: Assessment and Plan: Improving clinically and per radiology Qualifiers: Laterality: bilateral Lung location: lower lobe of lung Pneumonia type: due to unspecified organism Qualified Code(s): J18.9 - Pneumonia, unspecified organism (3) Acute renal injury due to sepsis: Assessment and Plan: improving over night continue cautious hydration and may need bumex in the next 24 hours CMP to confirm status of albumin (4) Dehydration: Assessment and Plan: improved (5) Hypoxia: Assessment and Plan: improved (6) Hypoalbuminemia: Assessment and Plan: Needs CMP to confirm status currently (7) Heart failure: Assessment and Plan: stable Qualifiers: Heart failure chronicity: chronic Heart failure type: unspecified Qualified Code(s): I50.9 - Heart failure, unspecified (8) Hypertension: Assessment and Plan: stable Qualifiers: Hypertension type: primary hypertension Qualified Code(s): I10 - Essential (primary) hypertension (9) Diabetes mellitus: Qualifiers: Diabetes mellitus complication status: with other specified complication Diabetes mellitus senior living insulin use: without senior living use Diabetes mellitus type: type 2 Qualified Code(s): E11.69 - Type 2 diabetes mellitus with other specified complication (10) Hypothyroid: Assessment and Plan: stable Qualifiers: Hypothyroidism type: unspecified Qualified Code(s): E03.9 - Hypothyroidism, unspecified (11) Alzheimer dementia: Assessment and Plan: stable Qualifiers: Alzheimer's disease onset: unspecified onset Dementia behavioral or psychological symptom: without behavioral, psychotic, or mood disturbance or anxiety Dementia severity: moderate Qualified Code(s): G30.9 - Alzheimer's dis ease, unspecified; F02.B0 - Dementia in other diseases classified elsewhere, moderate, without behavioral disturbance, psychotic disturbance, mood disturbance, and anxiety Plan Albumin 100 mls @ 60 mls/hr IV ONCE on day of admission Sodium Chloride 1,000 mls @ 125 mls/hr IV CONT Apixaban 5 mg PO Q12H Docusate Sodium 200 mg PO BID Losartan Potassium 50 mg PO DAILY Levothyroxine Sodium 25 mcg PO QDAC Multivitamins (1) each PO DAILY Ferrous Sulfate 325 mg PO BID Loratadine 10 mg PO DAILY Megastrol Acetate 40 mg PO BID Pantoprazole Sodium 40 mg PO BID Simvastatin 20 mg PO BEDTIME Albuterol Sulfate 3 ml INH Q6H Methylprednisolone Sodium Succinate 40 mg INJ Q12H Azithromycin 250 mg in Sodium Chloride 250 mls @ 250 mls/hr IV DAILY Ceftriaxone Sodium 1 gm in Sodium Chloride 50 mls @ 100 mls/hr IV Q24H Vancomycin Hcl 500 mg in Sodium Chloride 100 mls @ 200 mls/hr IV Q18H Metoprolol Tartrate 25 mg PO Q12H Acetaminophen 650 mg PO Q4H PRN Magnesium Hydroxide 30 ml PO Q6H PRN Tramadol Hcl 50 mg PO Q8H PRN Benzonatate 100 mg PO Q6H PRN Insulin Regular per sliding scale SUBQ PRN Chlorphenir/Hydrocodone Polistirex 5 ml PO Q12H PRN cough Continue to monitor closely. Fall Risk Details Carranza Fall Scale Risk Level: Moderate Fall Risk Current Medications: Current Medications Acetaminophen (Acetaminophen 325 Mg Tablet) 650 mg PO Q4H PRN PRN Reason: headache Albuterol Sulfate (Ipratropium/Albuterol Sulfate 3 Ml Ampul.Neb) 3 ml INH RQ6 [facility] Last Admin: 10/27/24 13:27 Dose: 3 ml Apixaban (Apixaban 2.5 Mg Tablet) 5 mg PO Q12H [facility] Last Admin: 10/27/24 08:15 Dose: 5 mg Benzonatate (Benzonatate 100 Mg Capsule) 100 mg PO Q6H PRN PRN Reason: Cough Last Admin: 10/26/24 09:59 Dose: 100 mg Chlorphenir/Hydrocodone Polistirex (Hydrocodone/Chlorphen P-Stirex 5 Ml Sonja.Er.12h) 5 ml PO Q12H PRN PRN Reason: Cough Last Admin: 10/27/24 08:13 Dose: 5 ml Docusate Sodium (Docusate Sodium 100 Mg Capsule) 200 mg PO BID [facility] Last Admin: 10/27/24 08:15 Dose: 200 mg Ferrous Sulfate (Ferrous Sulfate 325 Mg Tablet) 325 mg PO BID [facility] Last Admin: 10/27/24 08:14 Dose: 325 mg Azithromycin 250 mg/ Sodium (Chloride) 250 mls @ 250 mls/hr IV DAILY [facility] Stop: 10/28/24 09:59 Last Infusion: 10/27/24 09:43 Dose: Infused Ceftriaxone Sodium 1 gm/ (Sodium Chloride) 50 mls @ 100 mls/hr IV Q24H [facility] Last Infusion: 10/26/24 22:00 Dose: Infused Sodium Chloride (Sodium Chloride) 1,000 mls @ 125 mls/hr IV CONT [facility] Last Admin: 10/27/24 14:37 Dose: 125 mls/hr Vancomycin HCl 500 mg/ Sodium (Chloride) 100 mls @ 200 mls/hr IV Q18H [facility] Last Infusion: 10/27/24 06:18 Dose: Infused Insulin Human Regular (Insulin Regular, Human 100 Unit/Ml) 0 unit SUBQ ACHS PRN; Protocol PRN Reason: hyperglycemia Last Admin: 10/26/24 20:09 Dose: 4 unit Levothyroxine Sodium (Levothyroxine Sodium 50 Mcg Tablet) 50 mcg PO QDAC [facility] Last Admin: 10/27/24 08:14 Dose: 50 mcg Loratadine (Loratadine 10 Mg Tablet) 10 mg PO DAILY [facility] Last Admin: 10/27/24 08:14 Dose: 10 mg Losartan Potassium (Losartan Potassium 50 Mg Tablet) 50 mg PO DAILY [facility] Last Admin: 10/27/24 08:15 Dose: 50 mg Magnesium Hydroxide (Magnesium, Aluminum Hydroxide 30 Ml Oral.Susp) 30 ml PO Q6H PRN PRN Reason: indigestion Megestrol Acetate (Megestrol Acetate 40 Mg Tablet) 40 mg PO BID [facility] Last Admin: 10/27/24 08:14 Dose: 40 mg Methylprednisolone Sodium Succinate (Methylprednisolone Sod Succ/Pf 40 Mg/Ml Vial) 40 mg INJ Q12H [facility] Last Admin: 10/27/24 08:13 Dose: 40 mg Metoprolol Tartrate (Metoprolol Tartrate 25 Mg Tablet) 25 mg PO Q12H [facility] Last Admin: 10/27/24 08:15 Dose: 25 mg Multivitamins (Multivitamin Tablet) 1 each PO DAILY [facility] Last Admin: 10/27/24 08:14 Dose: 1 each Pantoprazole Sodium (Pantoprazole Sodium 40 Mg Tablet.Dr) 40 mg PO BID [facility] Last Admin: 10/27/24 08:15 Dose: 40 mg Simvastatin (Simvastatin 10 Mg Tablet) 20 mg PO BEDTIME [facility] Last Admin: 10/26/24 20:05 Dose: 20 mg Tramadol HCl (Tramadol Hcl 50 Mg Tablet) 50 mg PO Q8H PRN PRN Reason: pain Last Admin: 10/26/24 21:30 Dose: 50 mg Time Spent With Patient Time: Total time spent is greater than 50% in coordination of care (as documented) at patient's floor/unit and/or counseling patient:
--- NOTE | 2024-10-27 17:27 | Event Note ---
Event Note Event Note: 1725 - I was notified by the floor nurse that this patient's 02 sats were decreasing into the upper 80's. Paitent was previously on 2 liters via N/C. Patient has fluids infusing at 125 mL hourly. Patient's respiratory rate is normal per staff. I did order stat BNP, and chest x-ray. IVF discontinue to further evaluation. Otherwise patient appears stable per nursing staff. Will continue to monitor.
--- NOTE | 2024-10-27 17:57 | Event Note ---
Event Note Event Note: 1747 I was called by the Respiratory therapist, patient is working to breathe, she asked that I come and see patient. I arrived at the patient's bedside. Patient is on 100% non rebreather - 02 sats, 91%, RR 24. Reports chest pain. Center of the chest 9 Radiating. Stat chest x-ray reviewed, FLUID OVERLOAD - 20 mg IV Lasix one time order Lung sounds congested rales. Stat EKG ordered. Patient is speaking in broken sentences. Patient is a DNR. Does not want to be intubated. Abdomen is soft and nontender. There is no pedal edema noted. 2+ peripheral pulses noted throughout. Will continue to monitor.
[2024-10-27] MEDS: FUROSEMIDE 20 MG/2 ML VIAL IV ONE ×2 (18:01→18:24)
[2024-10-27] MEDS ORDERED: ONDANSETRON HCL/PF 4 MG/2 ML VIAL IVP PRN (18:20)
[2024-10-27] MEDS: SCOPOLAMINE 1 EACH PATCH.TD.3 TD ONE (18:23)
[2024-10-27] MEDS: SCOPOLAMINE 1 EACH PATCH.TD.3 TD SCH (18:25)
[2024-10-27] MEDS: MORPHINE SULFATE 4 MG/ML CARTRIDGE IVP ONE (18:42)
--- NOTE | 2024-10-27 18:49 | Event Note ---
Event Note Event Note: 1839 I was notified that the patient's family is at bedside. I arrived at bedside. patient is struggling to breath. She continues on the 100% non rebreather. 02 sats low 80s. Patient requires oral suctioning. Son confirmed DNR status. He would like to change patient to comfort measures only. Son is calling the rest of the family to come in to see the patient. An additional dose of 20 mg IV Lasix ordered 4 mg morphine IVP Zofran PRN ordered scopolamine patch ordered.
[2024-10-27] MEDS: MORPHINE SULFATE 4 MG/ML CARTRIDGE IVP PRN (19:47)
[2024-10-28 05:32] LABS: Basophils #(Absolute) Auto 0.1 (0.0-0.1); Basophils%(Percent) Auto 0.6 (0.1-0.85); Granulocytes % - Auto 94.9 % (47.8-71.3); Granulocytes#(Absolute)- Auto 18.4 (2.3-6.0); Mean Corpuscular Volume 100.7 fl (81.0-93.7); Monocytes #(Absolute)- Auto 0.5 (1.1-3.1); Monocytes %(Percent)- Auto 2.7 % (3.6-9.8); Platelet Count 393 K/uL (152-353); White Blood Count 19.4 K/uL (4.3-9.3)
[2024-10-28 05:38] VITALS: BP 127/54; PULSE 116; RESP 24; TEMP 97.8
--- NOTE | 2024-10-28 10:54 | Discharge Summary ---
Discharge Sum: Prov Provider Primary care physician: Mekhi Canela MD Admitting clinician: Carmenza Avendano Attending physician on admission: Brenda Vásquez Pronouncing clinician: Joseph Sumner Discharge Sum: Diag PCOD Cause of : Sepsis due to pneumonia Contributing Factors (1) Sepsis: Contributing factors: septic shock (2) Pneumonia: (3) Acute renal injury due to sepsis: (4) Dehydration: (5) Hypoxia: (6) Hypoalbuminemia: (7) Heart failure: (8) Hypertension: (9) Diabetes mellitus: (10) Hypothyroid: (11) Alzheimer dementia: Discharge Sum: Summary Date and Time Date of admission: 10/25/24 15:37 Date of : 10/28/24 Time of : 10:42 Summary Details: Pt admitted with sepsis due to PNA with associated lactic acidosis and ISABELLA. Responded to fluids but developed flash pulmonary edema yesterday. Family elected for non-agressive measures and DNR/DNI status. Pt steadily declined overnight and passed at 1042 on 10/28/24. Family was at bedside. Did not respond to ocular stimuli, fingertip pressure, or chest rub. Additional Data Confirmation of as documented by pronouncing clinician: no pulse, no respirations, no heart sounds and pupils fixed and dilated Family: at bedside Attending/PCP notified: Yes Attending physician: Brenda Vásquez DO Was code activated: No Autopsy requested: No
== END 2024-10-28 12:50 | disposition expired | DRG 871 ==
LOC: ED 14:01 → MS 14:01 → OBSVTOIN 15:37 → MS 16:59
PROVIDERS: ADMIT Family Medicine; ATTEND Family Medicine
DX: R09.02 Hypoxemia; I50.9 Heart failure, unspecified; G30.8 Other Alzheimer's disease; R65.20 Severe sepsis without septic shock; R06.02 Shortness of breath; I11.0 Hypertensive heart disease with heart failure; E03.8 Other specified hypothyroidism; E86.0 Dehydration; A41.9 Sepsis, unspecified organism; F02.B0 Dementia in other diseases classified elsewhere, moderate, without behavioral disturbance, psychotic disturbance, mood disturbance, and anxiety; E88.09 Other disorders of plasma-protein metabolism, not elsewhere classified; N17.8 Other acute kidney failure; E11.69 Type 2 diabetes mellitus with other specified complication; R05.9 Cough, unspecified; J18.9 Pneumonia, unspecified organism